=== PATIENT | female | born 1990 | race African-American/Black ===

== ENCOUNTER 2017-06-25 16:11 | Emergency (ER) | payer MEDICAID ==
[~2017-06-25] VITALS: Ht 157.5 cm; Wt 63.5 kg
[2017-06-25] MEDS ORDERED: DIPHTH,PERTUSS(ACELL),TET TOX 0.5 ML DISP.SYRIN. VAX IM ONE (16:30)
[2017-06-25 16:33] VITALS: BP 110/69
[2017-06-25] MEDS ORDERED: DOXY100T PO (16:54)
[2017-06-25] MEDS ORDERED: PRED50TA PO (16:54)
--- NOTE | 2017-06-25 16:54 | PHYS DOC ---
Past Medical History Past Medical History: No Pertinent History Past Surgical History: No Surgical History Alcohol Use: None Drug Use: None Adult General Chief Complaint Chief Complaint: INSECT BITE HPI HPI Patient is a 27 year old female who presents with insect bite on the left lateral thigh that she noted 3 days ago. Patient denies any fever. Review of Systems Review of Systems Constitutional: See history of present illness Musculoskeletal: Denies back pain or joint pain [] Integument: insect bite on the left lateral thigh Neurologic: Denies headache, focal weakness or sensory changes [] [] Current Medications Current Medications Current Medications Medications (Trade) Dose Ordered Sig/Kemal Start Time Stop Time Status Last Admin Dose Admin Diphtheria/ Tetanus/Acell Pertussis (Boostrix) 0.5 ml ONCE ONCE 06/25/17 16:30 06/25/17 16:34 DC Allergies Allergies Allergies Coded Allergies Type Severity Reaction Last Updated Verified No Known Drug Allergies 06/25/17 No Physical Exam Physical Exam Constitutional: Well developed, well nourished, no acute distress, non-toxic appearance. [] Skin: Warm, dry, left proximal dorsal thigh with a blister approximately 0.5 x 0.5 cm wide with surrounding 5cmX5 cm of cellulitis. Back: No tenderness, no CVA tenderness. [] Extremities: No tenderness, no cyanosis, no clubbing, ROM intact, no edema. [] Neurologic: Alert and oriented X 3, normal motor function, normal sensory function, no focal deficits noted. [] Psychologic: Affect normal, judgement normal, mood normal. [] Current Patient Data Vital Signs Vital Signs Date Time Temp Pulse Resp B/P (MAP) Pulse Ox O2 Delivery O2 Flow Rate FiO2 06/25/17 16:33 98.6 76 16 99 Room Air 98.6 EKG EKG [] Radiology/Procedures Radiology/Procedures [] Course & Med Decision Making Course & Med Decision Making Pertinent Labs and Imaging studies reviewed. (See chart for details) Patient is an area of cellulitis on the left lower extremity suspicious from an insect bite. Discharged with doxycycline. Tetanus updated. Instructed to keep the area clean and dry. Follow-up with PCP in 1-2 weeks. Dragon Disclaimer Dragon Disclaimer This electronic medical record was generated, in whole or in part, using a voice recognition dictation system. Departure Departure Impression: Primary Impression: Insect bite Additional Impression: Cellulitis of left lower extremity Disposition: HOME, SELF-CARE Condition: STABLE Patient Instructions: Cellulitis, [id number], Insect Bite, [id number] Additional Instructions: You have an insect bite to the left lower extremity. Keep the area clean and dry. Complete the oral antibiotics prescribed. Please return to the emergency room at any point her. Follow-up with your doctor in one week. Scripts Prednisone (PREDNISONE) 50 Mg Tablet 1 TAB PO DAILY, #5 TAB Prov: ABBY MCKEON APRN 06/25/17 Doxycycline Hyclate (DOXYCYCLINE HYCLATE) 100 Mg Tablet 1 TAB PO BID, #28 TAB Prov: ABBY MCKEON APRN 06/25/17 Problem Qualifiers Primary Impression: Insect bite Encounter type: initial encounter Qualified Codes: W57.XXXA - Bitten or stung by nonvenomous insect and other nonvenomous arthropods, initial encounter ABBY MCKEON APRN Jun 25, 2017 16:54
== END 2017-06-25 17:26 | disposition home or self-care (01) ==
LOC: ER 16:11
DX: S71.152A Open bite, left thigh, initial encounter (principal); L03.116 Cellulitis of left lower limb; W57.XXXA Bitten or stung by nonvenomous insect and other nonvenomous arthropods, initial encounter; Y93.89 Activity, other specified; Y99.8 Other external cause status; Y92.89 Other specified places as the place of occurrence of the external cause
CPT/HCPCS: 90471; 90715; 99283-25